=== PATIENT | male | born 1960 | race Caucasian/White ===

== ENCOUNTER → 2018-08-11 08:01 | Outpatient (CLI) | payer BC, OTHER, SELFPAY ==
--- NOTE | 2018-08-11 | DI.RAD.S_ITS ---
PROCEDURE: XR KUB INDICATIONS: ABDOMINAL PAIN TECHNIQUE: One view of the abdomen acquired. COMPARISON: None. FINDINGS: Surgical changes and devices: None. Bowel: Bowel gas pattern is normal. Soft tissues: No suspicious abdominal calcifications. Visualized solid organ contours appear normal in size. A few phleboliths are scattered throughout the pelvis. Bones: No suspicious bony lesions. IMPRESSION: No acute intra-abdominal findings. Dictated by: Keiry Stapleton M.D. on 08/11/2018 at 9:04 Approved by: Keiry Stapleton M.D. on 08/11/2018 at 9:04
== END ==
PROVIDERS: Visit Provider Orthopaedic Surgery
DX: R10.32 Left lower quadrant pain (principal)
CPT/HCPCS: 74018

== ENCOUNTER → 2019-08-17 14:28 | Outpatient (CLI) | payer BC, OTHER, SELFPAY ==
--- NOTE | 2019-08-17 | DI.RAD.S_ITS ---
PROCEDURE: XR WRIST RT 2V INDICATIONS: RT WRIST/ RT HAND TECHNIQUE: 2 views of the wrist were acquired. COMPARISON: None. FINDINGS: Bones: No fractures or dislocations. No suspicious bony lesions. Soft tissues: No suspicious soft tissue calcifications. IMPRESSION: No acute radiographic findings. Dictated by: Keiry Stapleton M.D. on 08/17/2019 at 14:40 Approved by: Keiry Stapleton M.D. on 08/17/2019 at 14:41
== END ==
PROVIDERS: PCP Orthopaedic Surgery; Referring Provider Orthopaedic Surgery; Visit Provider Orthopaedic Surgery
DX: M25.541 Pain in joints of right hand (principal)
CPT/HCPCS: 73100

== ENCOUNTER → 2024-03-14 10:21 | Outpatient (CLI) | payer OTHER, SELFPAY ==
--- NOTE | 2024-03-14 10:26 | DI.RAD.S_ITS ---
PROCEDURE: XR KNEE LT 3V INDICATIONS: KNEE PAIN TECHNIQUE: 3 views of the knee were acquired. COMPARISON: None. FINDINGS: Bones: No fractures or dislocations. No suspicious bony lesions. Wwil-mi-ejrgyauy tricompartmental arthritic change most severe medially. Very minimal periarticular osteophytes. No erosions. Soft tissues: Minimal joint effusion. No suspicious soft tissue calcifications. IMPRESSION: Tricompartmental arthritic change most severe medially. Dictated by: Suzi Estrada M.D. on 03/14/2024 at 16:26 Approved by: Suzi Estrada M.D. on 03/14/2024 at 16:27
--- NOTE | 2024-03-14 10:26 | DI.RAD.S_ITS ---
PROCEDURE: XR KNEE RT 3V INDICATIONS: KNEE PAIN TECHNIQUE: 3 views of the knee were acquired. COMPARISON: None. FINDINGS: Bones: No fractures or dislocations. No suspicious bony lesions. [id number]-lb-[id number] tricompartmental arthritic change most severe medially. Minimal periarticular osteophytes. No distinct erosions. Soft tissues: Minimal joint effusion. No suspicious soft tissue calcifications. IMPRESSION: Kolg-sc-lzfbmvct tricompartmental arthritic change most severe medially. Dictated by: Suzi Estrada M.D. on 03/14/2024 at 16:27 Approved by: Suzi Estrada M.D. on 03/14/2024 at 16:27
--- NOTE | 2024-03-14 10:26 | DI.RAD.S_ITS ---
PROCEDURE: XR CERVICAL SPINE 2V OR 3V INDICATIONS: NECK PAIN TECHNIQUE: 3 view(s) of the cervical spine were acquired. COMPARISON: None. FINDINGS: Bones: No fractures or dislocations to the T1 level. The lateral masses of C1 appear intact on the odontoid view. No suspicious bony lesions. There is trace retrolisthesis of C4 on C5, C5 on C6. Multilevel degenerative disc space narrowing is present most severe at C4-5, C5-6 with prominent anterior osteophytes. Multilevel mid cervical uncovertebral hypertrophy is present. Soft tissues: No prevertebral soft tissue swelling. IMPRESSION: Degenerative changes most severe at C4-5, C5-6. Dictated by: Suzi Estrada M.D. on 03/14/2024 at 16:01 Approved by: Suzi Estrada M.D. on 03/14/2024 at 16:02
--- NOTE | 2024-03-14 10:27 | DI.RAD.S_ITS ---
PROCEDURE: XR SHOULDER LT MIN 2V INDICATIONS: SHOULDER PAIN TECHNIQUE: 3 views of the shoulder were acquired. COMPARISON: None. FINDINGS: Bones: No fractures or dislocations. No suspicious bony lesions. Visualized ribs appear intact. Moderate acromioclavicular degenerative narrowing. Soft tissues: No suspicious soft tissue calcifications. IMPRESSION: Moderate acromioclavicular arthritic change. Dictated by: Suzi Estrada M.D. on 03/14/2024 at 16:02 Approved by: Suzi Estrada M.D. on 03/14/2024 at 16:26
== END ==
PROVIDERS: PCP Family Medicine; Referring Provider Family Medicine; Visit Provider Family Medicine
DX: M47.22 Other spondylosis with radiculopathy, cervical region (principal); M25.512 Pain in left shoulder; M25.561 Pain in right knee; M25.562 Pain in left knee
CPT/HCPCS: 72040; 73030; 73562